=== PATIENT | female | born 1950 | race Caucasian/White ===

== ENCOUNTER 2017-07-08 19:48 | Emergency (ER) | payer OTHER ==
[~2017-07-08] VITALS: Ht 160 cm; Wt 84.9 kg
[2017-07-08] MEDS ORDERED: ROXICODONE5 MG PO (23:26)
[2017-07-08] MEDS ORDERED: MOTRIN600 MG PO (23:26)
[2017-07-09 00:14] VITALS: BP 160/97
== END 2017-07-09 00:17 | disposition home or self-care (01) ==
LOC: EME → EDBD 19:48 → EME 19:48
PROC: 0HQ0XZZ Repair Scalp Skin, External Approach (ICD-10-PCS; principal; 2017-07-08)
DX: S09.90XA Unspecified injury of head, initial encounter (principal); S93.402A Sprain of unspecified ligament of left ankle, initial encounter; S60.212A Contusion of left wrist, initial encounter; S01.01XA Laceration without foreign body of scalp, initial encounter; W18.30XA Fall on same level, unspecified, initial encounter; I10 Essential (primary) hypertension
CPT/HCPCS: 70450; 72125; 73060; 73090; 73110; 73610; 73630; 93005; 99281; 99284

== ENCOUNTER 2017-07-21 20:33 | Emergency (ER) | payer OTHER ==
[~2017-07-21] VITALS: Ht 160 cm; Wt 92.1 kg
[~2017-07-21 20:33] MED LIST: MOTRIN600 MG PO; ROXICODONE5 MG PO
[2017-07-21 22:32] VITALS: BP 170/90
== END 2017-07-21 22:33 | disposition home or self-care (01) ==
LOC: EME 20:33
DX: S01.01XD Laceration without foreign body of scalp, subsequent encounter (principal); Z48.02 Encounter for removal of sutures
CPT/HCPCS: 99281; 99282